=== PATIENT | female | born 1995 | race Caucasian/White ===

== ENCOUNTER 2021-03-25 17:48 | Inpatient (IN) ==
[2021-03-25] MEDS ORDERED: Buffered Lidocaine 1% SYRIN 1 ml INTRADERM ONE (19:56)
[2021-03-25] MEDS ORDERED: Lactated Ringers 1000 ml BAG 1,000 ML IV ONE (19:56)
[2021-03-25] MEDS ORDERED: Lactated Ringers 1000 ml BAG 1,000 ML IV SCH (20:00)
[2021-03-26] MEDS ORDERED: Morphine 10 MG/ML VIAL (1 ml) IV ONE (00:09)
[2021-03-26] MEDS ORDERED: Promethazine INJ(RESTRICTED) 25 MG/ML 1 ml VIAL IV ONE (00:10)
[2021-03-26 00:47] LABS: ABS Basophils 0.1 10^3/ul (0-0.2); ABS Monocytes 0.5 10^3/ul (0-0.8); ABS Neutrophils 4.8 10^3/ul (1.5-7.7); Eosinophil % 0.7 %; Hematocrit 38 % (35-47); Hemoglobin 13.1 g/dL (12.0-16.0); Lymphocyte % 26.5 %; Mean Corpuscular HGB Conc 34 g/dL (31-36); Mean Corpuscular Hemoglobin 37 pg (27-31); Mean Corpuscular Volume 106 fL (80-97); Nucleated Red Blood Cells % 0.1; Platelet Count 166 10^3/uL (150-450); Red Blood Count 3.58 10^6 /uL (3.70-4.87); Red Cell Distribution Width 14 % (10-15); White Blood Count 7.4 10^3/uL (3.5-10.8)
[2021-03-26] MEDS ORDERED: OBEPIDURAL 250 ML EPIDURAL ONE (02:59)
[2021-03-26] MEDS ORDERED: Lactated Ringers 1000 ml BAG 500 ML IV PRN ×2 (04:03)
[2021-03-26] MEDS ORDERED: Phenylephrine 40 mcg/mL 10mL (400mcg) SYRINGE IV PUSH PRN ×2 (04:03)
[2021-03-26] MEDS ORDERED: Lactated Ringers 1000 ml BAG 1,000 ML IV ONE (04:03)
[2021-03-26] MEDS ORDERED: Sodium Citrate/Citric Acid LIQ 15 ML UDC PO PRN (04:03)
[2021-03-26 04:59] LABS: Urine Appearance Cloudy; Urine Bilirubin Negative (Negative); Urine Blood 1+ (Negative); Urine Color Yellow; Urine Glucose Negative (Negative); Urine Ketones 2+ (Negative); Urine Nitrite Negative (Negative); Urine Protein 1+(30 mg/dL) (Negative); Urine Specific Gravity 1.021 (1.002-1.030); Urine Urobilinogen Negative (Negative)
[2021-03-26] MEDS ORDERED: Lactated Ringers 1000 ml BAG 1,000 ML IV SCH (05:00)
[2021-03-26] MEDS ORDERED: OBEPIDURAL 250 ML EPIDURAL SCH (05:00)
[2021-03-26 05:19] LABS: Urine Benzodiazepine Screen None Detected (None Detect); Urine Cannabinoids Screen Presumptive Positive (None Detect); Urine Opiates Screen Presumptive Positive (None Detect)
[2021-03-26 05:24] LABS: Urine Bacteria Absent (Absent); Urine Red Blood Cell 1+(3-5/hpf) (Absent); Urine White Blood Cell Trace(0-5/hpf) (Absent)
[2021-03-26 05:25] LABS: Urine Squamous Epithelial Cell Present (Absent)
[2021-03-26] MEDS ORDERED: Oxytocin in LR 20 UNITS/1,000 ML BAG IVPB ONE (09:43)
[2021-03-26] MEDS ORDERED: Dibucaine 1% OINT 28.35 GM TUBE PR PRN (11:31)
[2021-03-26] MEDS ORDERED: Glycerin ADULT 2.4 gm SUPP PR PRN (11:31)
[2021-03-26] MEDS ORDERED: Witch Hazel PAD JAR TOPICAL PRN (11:31)
[2021-03-26] MEDS ORDERED: Lidocaine 1% VIAL 10 MG/ML VIAL ONE (13:27)
[2021-03-27 08:02] LABS: ABS Eosinophils 0.1 10^3/ul (0-0.6); ABS Lymphocytes 1.9 10^3/ul (1.0-4.8); ABS Monocytes 0.5 10^3/ul (0-0.8); ABS Neutrophils 6.9 10^3/ul (1.5-7.7); Eosinophil % 0.8 %; Hematocrit 30 % (35-47); Hemoglobin 10.5 g/dL (12.0-16.0); Lymphocyte % 20.2 %; Mean Corpuscular HGB Conc 35 g/dL (31-36); Mean Corpuscular Hemoglobin 37 pg (27-31); Mean Corpuscular Volume 106 fL (80-97); Platelet Count 124 10^3/uL (150-450); Red Blood Count 2.86 10^6 /uL (3.70-4.87); Red Cell Distribution Width 14 % (10-15); White Blood Count 9.4 10^3/uL (3.5-10.8)
[2021-03-28 07:30] VITALS: BP 108/61
== END 2021-03-28 11:53 | disposition home or self-care (01) | DRG 560 ==
LOC: MCHOBOUT 17:48 → MCHOB 18:20
PROVIDERS: ADMIT Midwife; ATTEND Midwife